=== PATIENT | female | born 1940 | race Hispanic/Latino ===

== ENCOUNTER 2022-04-07 17:22 | Inpatient (IN) | payer MEDICARE, OTHER ==
[~2022-04-07] VITALS: Ht 162.6 cm; Wt 97.1 kg
[2022-04-07] MEDS ORDERED: Morphine 4mg INJECTION 4 MG/ML INJ IV PRN (19:30)
[2022-04-07] MEDS ORDERED: SODIUM CHLORIDE FLUSH 10 ML SYR INJ PRN (19:30)
[2022-04-07] MEDS ORDERED: ONDANSETRON HCL INJ 2MG/ML 2ML 2 MG/ML VIAL IV PRN (19:30)
[2022-04-07 19:32] LABS: BASOPHILS # (AUTO) 0.1 (0.0-0.1); BASOPHILS % 0.6 % (0.0-1.0); EOSINOPHILS # (AUTO) 0.1 (0.0-0.4); EOSINOPHILS % 0.8 % (0.0-6.0); HEMATOCRIT 40.8 % (34.2-44.1); LYMPHOCYTES # (AUTO) 2.5 (1.0-3.2); LYMPHOCYTES % 32.7 % (18.0-39.1); MEAN CORPUSCULAR HGB CONC 31.9 g/dL (31-35); MEAN CORPUSCULAR VOLUME 97.4 fL (81-99); MONOCYTES # (AUTO) 0.7 (0.2-0.8); MONOCYTES % 8.6 % (4.4-11.3); NEUTROPHILS # (AUTO) 4.4 (2.1-6.9); NEUTROPHILS % 57.2 % (38.7-80.0); PLATELET COUNT 175 x10e3/uL (140-360); RED BLOOD COUNT 4.19 x10e6/uL (3.6-5.1); RED CELL DISTRIBUTION WIDTH 12.7 % (11.7-14.4)
[2022-04-07 20:13] LABS: ALANINE AMINOTRANSFERASE 24 IU/L (0-55); ALBUMIN 3.8 g/dL (3.5-5.0); ALBUMIN/GLOBULIN RATIO 0.8 (0.8-2.0); ALKALINE PHOSPHATASE 113 IU/L (40-150); ANION GAP 16.8 mmol/L (8-16); BLOOD UREA NITROGEN 25 mg/dL (7-26); BUN/CREATININE RATIO 20 (6-25); CALCIUM 9.8 mg/dL (8.4-10.2); CARBON DIOXIDE 19 mmol/L (22-29); CHLORIDE 104 mmol/L (98-107); CREATINE KINASE 77 IU/L (29-168); CREATININE, SERUM 1.24 mg/dL (0.57-1.11); GLUCOSE 143 mg/dL (74-118); POTASSIUM 3.8 mmol/L (3.5-5.1); SODIUM 136 mmol/L (136-145)
[2022-04-07] MEDS ORDERED: DOCUSATE SODIUM 100 MG CAP PO PRN (21:30)
[2022-04-07] MEDS ORDERED: ACETAMINOPHEN 325 MG TAB PO PRN (21:30)
[2022-04-07 21:55] VITALS: BP 129/64
[2022-04-07 22:07] LABS: CHOL/HDL RATIO 2.4 (3.0-3.6)
[2022-04-07] MEDS ORDERED: TRAZODONE HCL50 MG PO (22:14)
[2022-04-07] MEDS ORDERED: HYDRALAZINE HCL50 MG PO (22:14)
[2022-04-07] MEDS ORDERED: HUMALOG100 UNIT/3 SQ (22:14)
[2022-04-07] MEDS ORDERED: CHOLESTYRAMINE P4 GM PO (22:14)
[2022-04-07] MEDS ORDERED: JARDIANCE10 MG PO (22:14)
[2022-04-07] MEDS ORDERED: LEVEMIR FL100 UNIT/1 SQ (22:14)
[2022-04-07] MEDS ORDERED: GLIPIZIDE5 MG PO (22:14)
[2022-04-07] MEDS ORDERED: SIMVASTATIN20 MG PO (22:14)
[2022-04-07] MEDS ORDERED: AMLODIPINE BESY10 MG PO (22:14)
[2022-04-07] MEDS ORDERED: VYZULTA2.5 ML OU (22:14)
[2022-04-07] MEDS ORDERED: SPIRONOLACTONE25 MG PO (22:14)
[2022-04-07] MEDS ORDERED: CLOPIDOGREL75 MG PO (22:14)
[2022-04-07] MEDS ORDERED: IRBESARTAN300 MG PO (22:14)
[2022-04-07] MEDS ORDERED: LOPRESSOR25 MG PO (22:14)
[2022-04-07] MEDS ORDERED: FUROSEMIDE40 MG PO ×2 (22:14)
[2022-04-07 22:27] LABS: THYROID STIMULATING HORMONE 2.328 uIU/mL (0.350-4.940)
[2022-04-07 22:30] VITALS: BP 129/64
[2022-04-08] VITALS: BP 129/54
[2022-04-08] MEDS ORDERED: TRAZODONE HCL 50 MG TAB PO ONE
[2022-04-08] MEDS ORDERED: DEXTROSE 50% SYRINGE 50 ML IV PRN
[2022-04-08 04:00] VITALS: BP 142/59
[2022-04-08 05:35] LABS: BASOPHILS % 0.7 % (0.0-1.0); EOSINOPHILS # (AUTO) 0.1 (0.0-0.4); EOSINOPHILS % 1.5 % (0.0-6.0); HEMATOCRIT 38.3 % (34.2-44.1); HEMOGLOBIN 12.3 g/dL (12.0-16.0); LYMPHOCYTES # (AUTO) 1.9 (1.0-3.2); LYMPHOCYTES % 32.4 % (18.0-39.1); MEAN CORPUSCULAR HEMOGLOBIN 31.4 pg (28-32); MEAN CORPUSCULAR HGB CONC 32.1 g/dL (31-35); MEAN CORPUSCULAR VOLUME 97.7 fL (81-99); MONOCYTES # (AUTO) 0.5 (0.2-0.8); MONOCYTES % 7.9 % (4.4-11.3); NEUTROPHILS # (AUTO) 3.3 (2.1-6.9); NEUTROPHILS % 57.3 % (38.7-80.0); PLATELET COUNT 155 x10e3/uL (140-360); RED BLOOD COUNT 3.92 x10e6/uL (3.6-5.1); RED CELL DISTRIBUTION WIDTH 12.3 % (11.7-14.4)
[2022-04-08 06:14] LABS: ALBUMIN/GLOBULIN RATIO 0.8 (0.8-2.0); ANION GAP 12.6 mmol/L (8-16); CALCIUM 9.2 mg/dL (8.4-10.2); CREATININE, SERUM 1.14 mg/dL (0.57-1.11); POTASSIUM 3.6 mmol/L (3.5-5.1)
[2022-04-08 06:43] LABS: CREATINE KINASE MB 1.1 ng/mL (0-5.0)
[2022-04-08] MEDS ORDERED: INSULIN REGULAR, HUMAN 100 UNIT/1 ML SQ SCH (07:30)
[2022-04-08 08:18] VITALS: BP 148/45
[2022-04-08] MEDS ORDERED: ASPIRIN 81 MG ENTERIC COATED PO SCH (09:00)
[2022-04-08] MEDS ORDERED: AMLODIPINE BESYLATE 5 MG TAB PO SCH (09:00)
[2022-04-08 11:50] VITALS: BP 137/60
[2022-04-08] MEDS ORDERED: ONDANSETRON HCL 4 MG ORAL DISINTEGRATING TAB PO PRN (14:30)
[2022-04-08 14:47] LABS: CREATINE KINASE 67 IU/L (29-168)
[2022-04-08] MEDS ORDERED: TRAZODONE HCL 50 MG TAB PO SCH (21:00)
[2022-04-08] MEDS ORDERED: ATORVASTATIN 20 MG TAB PO SCH (21:00)
[2022-04-09] MEDS ORDERED: METFORMIN HCL 500 MG TAB PO SCH (08:00)
== END 2022-04-08 15:00 | disposition home or self-care (01) | DRG 605 ==
LOC: ER 17:32 → ERHOLD 19:18 → MED/SURG 21:22
PROVIDERS: ADMIT Internal Medicine; ATTEND Internal Medicine
DX: S60.221A Contusion of right hand, initial encounter (principal); S09.8XXA Other specified injuries of head, initial encounter; W01.0XXA Fall on same level from slipping, tripping and stumbling without subsequent striking against object, initial encounter; Y93.01 Activity, walking, marching and hiking; R00.8 Other abnormalities of heart beat; I10 Essential (primary) hypertension; I25.10 Atherosclerotic heart disease of native coronary artery without angina pectoris; E78.5 Hyperlipidemia, unspecified; Z20.822 Contact with and (suspected) exposure to COVID-19; Z95.5 Presence of coronary angioplasty implant and graft; R73.9 Hyperglycemia, unspecified; Z79.4 Long term (current) use of insulin
CPT/HCPCS: 36415; 70450; 71045; 72125; 80053; 80061; 82550; 82553; 82948; 83036; 83880; 84443; 84484; 85025; 93005; 94799; 99284